=== PATIENT | female | born 1975 | race Caucasian/White ===

== ENCOUNTER 2023-08-28 08:36 | Day surgery (SDC) | payer SELFPAY ==
[2023-08-28] VITALS (13 sets, daily range): BP systolic 92–131; BP diastolic 57–80; PULSE 85–115; RESP 16–26; TEMP 36.8–37.1; O2SAT 93–99; BMI 24.0
[2023-08-28 09:06] LABS: Basophils # 0.1 10^3/uL (0.0-0.1); Basophils % 0.9 %; Eosinophils # 0.1 10^3/uL (0.0-0.8); Eosinophils % 1.4 %; Hematocrit 38.3 % (36-47); Lymphocytes # 1.1 10^3/uL (0.8-4.8); Lymphocytes % 12.5 %; Mean Corpuscular HGB Conc 34.5 g/dL (30-55); Mean Corpuscular Hemoglobin 32.8 pg (27-33); Mean Platelet Volume 8.4 fL (7.4-10.4); Monocytes # 0.2 10^3/uL (0.2-0.9); Monocytes % 2.1 %; Neutrophils # 7.53 10^3/uL (1.8-7.7); Neutrophils % 82.8 %; Nucleated Red Blood Cells % 0 %; Platelet Count 298 10^3/cmm (157-399); Red Blood Count 4.03 10^6/uL (3.85-5.65); Red Cell Distribution Width 13.2 % (12.1-15.1)
[2023-08-28 09:23] LABS: Alanine Aminotransferase 22 U/L (0-33); Albumin Level 4.4 g/dL (3.5-5.2); Alkaline Phosphatase 64 U/L (35-105); Anion Gap 16.1 (5-19); Aspartate Amino Transferase 36 U/L (0-32); Blood Urea Nitrogen 14 mg/dL (6-20); Calcium 9.5 mg/dL (8.5-10.5); Carbon Dioxide 26 mmol/L (22-29); Chloride 100 mmol/L (98-107); Globulin 2.5 g/dL (1.3-4.6); Glomerular Filtration Rate 75.9 mL/min (90-130); Glucose 95 mg/dL (65-115); Osmolality Calculated 286 mOsm/kg (285-295); Potassium 4.1 mmol/L (3.5-5.1); Sodium 138 mmol/L (136-145); Total Bilirubin 0.5 mg/dL (0.15-1.2); Total Protein 6.9 g/dL (6.6-8.7)
--- NOTE | 2023-08-28 10:00 | ED_ITS ---
HPI - Female Genitourinary 2 General: Chief complaint: Vaginal Bleeding Stated complaint: Vag bleeding Time Seen by Provider: 08/28/23 08:39 Source: patient Mode of arrival: ambulatory History of Present Illness: 48-year-old female presents to the emerg ency room complaining of vaginal bleeding after aggressive intercourse this morning. Patient is trembling and nauseous she denies any abdominal pain. She does state that the sex was consensual and she denies any abuse or assault. At this point in the history taking I asked Luh Chappell our charge nurse to come to the room with me to grader tender. Patient denies any vaginal instrumentation she denies any rectal intercourse she is states that she had several blood clots and had to use 3 washcloths to clean up the blood after she noted it. She denies any dysuria urgency or frequency no recent constipation or abdominal pain no pelvic pain at this time. She has previously had a but no other pelvic surgeries. Patient is trembling states she is very cold and somewhat anxious given the circumstances. MD elicited complaint: vaginal bleeding Onset (ago): minute(s) Location of symptoms: external genitalia Severity: mild Quality of pain: cramping Consistency: constant Vaginal discharge: none Vaginal bleeding: heavy Exacerbating factors: none Relieving factors: none Associated symptoms: Reports nausea and syncope; Deny abdominal pain, short of breath, fevers/chills, headache(s), rash, seizures, vaginal bleeding, vaginal discharge or weakness Sexual activity: Yes Review of Systems 2 Const: Denies: fever(s) or chills Card: Reports: syncope Resp: Denies: dyspnea GI: Reports: nausea; Denies: abdominal pain : Denies: vaginal discharge Musc: Denies: neck pain or back pain Skin/Breast: Denies: rash Neuro: Denies: headache(s) Physical Exam 2 Const: GENERAL APPEARANCE: cooperative and comfortable O RIENTATION/CONSCIOUSNESS: Yes awake, Yes oriented to person, Yes oriented to place and Yes oriented to time HENMT: COMMON NORMALS: normocephalic, atraumatic and hearing grossly normal bilaterally HEAD & SCALP: normocephalic and atraumatic Resp: COMMON NORMALS: normal respiratory effort, No retractions, No use of accessory muscles and clear to auscultation bilaterally AUSCULTATION: clear to auscultation bilaterally Cardio: COMMON NORMALS: regular rate, regular rhythm and No murmurs present (Cardio) RATE: regular rate RHYTHM: regular rhythm GI: COMMON NORMALS: Soft to palpation and No hepatosplenomegaly present A USCULTATION: Yes normoactive bowel sounds PALPATION: Yes Soft to palpation, No Tenderness to palpation present (GI), No Guarding due to palpation present (GI) and Yes No hepatosplenomegaly present : SPECULUM EXAM - VAGINA: No vaginal bleeding OB/EXTERNAL & SPECULUM: No vaginal bleeding OTHER: Pelvic exam patient placed in dorsolithotomy position nurse present to grader tender. Speculum introduced some clots noted in the vaginal vault these were cleaned out with swabs. On the left lateral vaginal wall there is approximately a 3 inch laceration with active arterial bleeding. Limited exam because of equipment available I was not able to visualize any other lacerations Extremity: COMMON NORMALS: normal to inspection, capillary refill normal, no clubbing, cyanosis or edema, no calf tenderness and no pedal edema Neuro: SENSORIUM/ORIENTATION: Yes oriented to person, Yes oriented to place and Yes oriented to time Skin: COMMON NORMALS: no rashes or lesions noted GENERAL SKIN EXAM: no rashes or lesions noted Course 2 Vital Signs: Vital signs: Vital Signs Temperature 98.5 F 08/28/23 15:16 Pulse Rate 99 08/28/23 15:39 Respiratory Rate 18 08/28/23 15:39 Blood Pressure 102/73 08/28/23 15:39 Pulse Oximetry 94 08/28/23 15:39 Oxygen Delivery Me thod Room Air 08/28/23 15:39 MDM - Female Medical Decision Making Vaginal laceration with active bleeding. No believe will be able to adequately control this in the emergency room patient had severe discomfort with exam she will need a more thorough exam to evaluate for other injury. Discussed with hospitalist will place on observation to outpatient surgery where they will repair under anesthesia. Discussed with patient. Medical Records I reviewed the patient's medical records. Lab Data I reviewed the patient's lab results. 08/28/23 08:50 08/28/23 08:50 Laboratory Results WBC 9.10 10^3/uL (3.29-11.43) 08/28/23 08:50 RBC 4.03 10^6/uL (3.85-5.65) 08/28/23 08:50 Hgb 13.20 g/dL (11.27-16.99) 08/28/23 08:50 Hct 38.3 % (36-47) 08/28/23 08:50 MCV 95.0 fl (85-98) 08/28/23 08:50 MCH 32.8 pg (27-33) 08/28/23 08:50 MCHC 34.5 g/dL (30-55) 08/28/23 08:50 RDW 13.2 % (12.1-15.1) 08/28/23 08:50 Plt Count 298 10^3/cmm (157-399) 08/28/23 08:50 MPV 8.4 fL (7.4-10.4) 08/28/23 08:50 Neut % (Auto) 82.8 % 08/28/23 08:50 Lymph % (Auto) 12.5 % 08/28/23 08:50 Elbert % (Auto) 2.1 % 08/28/23 08:50 Eos % (Auto) 1.4 % 08/28/23 08:50 Baso % (Auto) 0.9 % 08/28/23 08:50 Neut # (Auto) 7.53 10^3/uL (1.8-7.7) 08/28/23 08:50 Lymph # (Auto) 1.1 10^3/uL (0.8-4.8) 08/28/23 08:50 Elbert # (Auto) 0.2 10^3/uL (0.2-0.9) 08/28/23 08:50 Eos # (Auto) 0.1 10^3/uL (0.0-0.8) 08/28/23 08:50 Baso # (Auto) 0.1 10^3/uL (0.0-0.1) 08/28/23 08:50 Nucleated RBC % (auto) 0 % 08/28/23 08:50 Nucleated RBCs # 0.0 /100WBC 08/28/23 08:50 Sodium 138 mmol/L (136-145) 08/28/23 08:50 Potassium 4.1 mmol/L (3.5-5.1) 08/28/23 08:50 Chloride 100 mmol/L (98-107) 08/28/23 08:50 Carbon Dioxide 26 mmol/L (22-29) 08/28/23 08:50 Anion Gap 16.1 (5-19) 08/28/23 08:50 BUN 14 mg/dL (6-20) 08/28/23 08:50 Creatinine 0.8 mg/dL (0.5-0.9) 08/28/23 08:50 GFR Calculation 75.9 mL/min (90-130) L 08/28/23 08:50 Glucose 95 mg/dL (65-115) 08/28/23 08:50 Calculated Osmolality 286 mOsm/kg (285-295) 08/28/23 08:50 Calcium 9.5 mg/dL (8.5-10.5) 08/28/23 08:50 Total Bilirubin 0.5 mg/dL (0.15-1.2) 08/28/23 08:50 AST 36 U/L (0-32) H 08/28/23 08:50 ALT 22 U/L (0-33) 08/28/23 08:50 Alkaline Phosphatase 64 U/L (35-105) 08/28/23 08:50 Total Protein 6.9 g/dL (6.6-8.7) 08/28/23 08:50 Albumin 4.4 g/dL (3.5-5.2) 08/28/23 08:50 Globulin 2.5 g/dL (1.3-4.6) 08/28/23 08:50 Urine Color Yellow (Yellow) 08/28/23 11:05 Urine Appearance Clear (CLEAR) 08/28/23 11:05 Urine pH 5 (5-7) 08/28/23 11:05 Ur Specific [place] 1.025 (1.005-1.030) 08/28/23 11:05 Urine Protein Neg (Negative) 08/28/23 11:05 Urine Glucose (UA) Norm (Normal) 08/28/23 11:05 Urine Ketones Negative (Negative) 08/28/23 11:05 Urine Blood 2+ (Negative) H 08/28/23 11:05 Urine Nitrate Negative (Negative) 08/28/23 11:05 Urine Bilirubin Neg (Negative) 08/28/23 11:05 Urine Urobilinogen Norm mg/dL (Negative) 08/28/23 11:05 Ur Leukocyte Esterase Negative (Negative) 08/28/23 11:05 Urine RBC 0-4 /hpf (0-2) H 08/28/23 11:05 Urine WBC 0-4 /hpf (0-5) H 08/28/23 11:05 Ur Squamous Epith Cells None /hpf (0-5) 08/28/23 11:05 Amorphous Sediment Not Reportable 08/28/23 11:05 Urine Bacteria Trace /hpf (NONE) 08/28/23 11:05 Hyaline Casts 0-4 /lpf H 08/28/23 11:05 Urine Mucus 2+ /hpf 08/28/23 11:05 No radiology studies performed this visit Discharge Plan Discharge Patient Disposition: Placed in Observation Clinical Impression: Vaginal laceration Discharge Diet: Regular Discharge Activity: Increase activity as tolerated and Limit activity as instructed Coding Level of Care Code ED Radio Equipment Installer for Basia Kelly
[2023-08-28] MEDS: LORazepam 2 mg/mL INJ 10 mL MDV IM (10:54)
[2023-08-28 11:22] LABS: Add Urine Microscopic? YES; Bilirubin Urine Neg (Negative); Blood Urine 2+ (Negative); Glucose Urine UA Norm (Normal); Ketones Urine Negative (Negative); Leukocyte Esterase Urine Negative (Negative); Nitrate Urine Negative (Negative); Protein Urine Neg (Negative); Specific Gravity, Urine 1.025 (1.005-1.030); Urine Appearance Clear (CLEAR); Urine Color Yellow (Yellow); Urobilinogen Urine Norm (Negative); pH Urine 5 (5-7)
[2023-08-28 11:32] LABS: Add Urine Culture? No; Bacteria Urine TRACE /hpf; Hyaline Casts Urine 0-4 /lpf; Mucus Urine 2+ /hpf; RBC Urine 0-4 /hpf (0-2); WBC Urine 0-4 /hpf (0-5)
--- NOTE | 2023-08-28 12:30 | PC.NURSE ---
Pelvic exam completed by Dr Aldridge with SERENITY Roberts assisting
--- NOTE | 2023-08-28 13:45 | PC.NURSE ---
No hcg per Dr Patel, no menstral cycle > 1 yr
[2023-08-28] MEDS: sodium chloride 0.9% 1,000 ML 30 ML IV (13:55)
[2023-08-28] MEDS: cefTRIAXone 1,000 MG in sodium chloride 0.9% (plus) 50 ML 100 MG IV (13:59)
--- NOTE | 2023-08-28 14:14 | P.ANESASSM_ITS ---
Pre-Anesthetic Assessment Height/Weight: Height 1.63 m Weight 63.503 kg Temp Pulse Resp BP Pulse Ox O2 Del Method 98.7 F 106 H 16 115/76 95 Room Air 08/28/23 13:53 08/28/23 13:53 08/28/23 13:53 08/28/23 13:53 08/28/23 13:53 08/28/23 13:53 Operation Date: 08/28/23 14:00 Proposed Procedures p Vaginal Laceration Repair(Not Applicable) - Mirtha Mac, Familial anesthetic complications: none Was Beta Mary taken within 24 hours: N/A Was Clonidine taken within 24 hours: N/A Last intake: Intake Last Liquid Date 08/27/23 Last Liquid Time 23:30 Last Solid Date 08/27/23 Last Solid Time 19:00 Social No alcohol and No tobacco Exam alert, oriented x 3, clear to auscultation bilaterally and regular rate & rhythm Airway Submandibular: within normal limits Cervical ROM: within normal limits Mallampati: Class II Dentition: full Neuropsych Anxiety Anesthetic Plan ASA status: 2 Anesthesia: General Medications/Allergies Home Medications Medication Instructions Recorded Confirmed Last Taken Type alprazolam 1 mg tablet 1 mg PO DAILY PRN Anxiety 08/28/23 08/28/23 08/27/23 History citalopram 40 mg tablet 40 mg PO DAILY 08/28/23 08/28/23 08/27/23 History Allergies Allergy/AdvReac Type Severity Reaction Status Date / Time No Known Allergies Allergy Verified 08/28/23 09:00 Current Medications Generic Name Dose Route Start Last Admin Trade Name Freq PRN Reason Stop Dose Admin Sodium Chloride 1,000 mls @ 30 mls/hr 08/28/23 14:00 08/28/23 13:55 Sodium Chloride 0.9% IV 08/29/23 13:59 30 mls/hr .Q24H JANIYA Administration Data Anesthesia 08/28/23 08:50 08/28/23 08:50 Short CBC 08/28/23 Range/Units 08:50 WBC 9.10 (3.29-11.43) 10^3/uL Hgb 13.20 (11.27-16.99) g/dL Hct 38.3 (36-47) % MCV 95.0 (85-98) fl Plt Count 298 (157-399) 10^3/cmm Neut % (Auto) 82.8 % Neut # (Auto) 7.53 (1.8-7.7) 10^3/uL BMP 08/28/23 08:50 Sodium 138 Potassium 4.1 Chloride 100 Carbon Dioxide 26 BUN 14 Creatinine 0.8 Glucose 95 Calcium 9.5 Liver Function 08/28/23 Range/Units 08:50 Total Bilirubin 0.5 (0.15-1.2) mg/dL AST 36 H (0-32) U/L ALT 22 (0-33) U/L Alkaline Phosphatase 64 (35-105) U/L Albumin 4.4 (3.5-5.2) g/dL Urine 08/28/23 Range/Units 11:05 Urine Color Yellow (Yellow) Urine Appearance Clear (CLEAR) Urine pH 5 (5-7) Ur Specific [place] 1.025 (1.005-1.030) Urine Protein Neg (Negative) Urine Glucose (UA) Norm (Normal) Urine Ketones Negative (Negative) Urine Nitrate Negative (Negative) Urine Bilirubin Neg (Negative) Ur Leukocyte Esterase Negative (Negative) Urine RBC 0-4 H (0-2) /hpf Urine WBC 0-4 H (0-5) /hpf Cardiac Studies: 2 No Data to Display
--- NOTE | 2023-08-28 14:58 | PM.HP ---
Providers/Chief Complaint Primary Care Provider: Renata Aguilar APN Chief Complaint: Vag bleeding History of Present Illness Janny Jon is a 48 year old Menopausal female seen in ER after call from ER Physician for consultation and surgical management of pt with vaginal wall laceration after having sexual intercourse. Pt states sex was consenual, and denies instrumentation. Pt denies pain, but has nausea and anxiety. She explains she doesn't want family to know why she is bleeding. LMP- greater than 1 yr ago. Risk and benefits of surgical exploration for Repair of active vaginal bleeding from laceration reviewed with possible injury to vessel and nerves as well as possible infection. Pt understands. Review of Systems Const: Denies: fever(s) or chills Card: Reports: syncope Resp: Denies: dyspnea GI: Reports: nausea; Denies: abdominal pain : Denies: vaginal discharge Musc: Denies: neck pain or back pain Skin/Breast: Denies: rash Neuro: Denies: headache(s) Medications/Allergies Home Medications Medication Instructions Recorded Confirmed Last Taken Type alprazolam 1 mg tablet 1 mg PO DAILY PRN Anxiety 08/28/23 08/28/23 08/27/23 History citalopram 40 mg tablet 40 mg PO DAILY 08/28/23 08/28/23 08/27/23 History Allergies Allergy/AdvReac Type Severity Reaction Status Date / Time No Known Allergies Allergy Verified 08/28/23 09:00 Vitals/I&O/Wt Last Vital Signs Temp 98.6 F 08/28/23 14:46 Pulse 114 H 08/28/23 14:51 Resp 17 08/28/23 14:51 BP 92/57 08/28/23 14:51 Pulse Ox 94 08/28/23 14:51 O2 Del Method Room Air 08/28/23 14:51 08/27/23 08/28/23 08/28/23 22:59 06:59 14:59 Intake Total 50 / 50 Output Total 10 / 10 Balance 40 / 40 Weight last 48 hrs Weight 63.503 kg Physical Exam Narrative: 48yo female A&O x 3 in NAD. HENMT: COMMON NORMALS: normocephalic Cardio: COMMON NORMALS: regular rate and regular rhythm Back/Pelvis: OTHER: PE- right sided vaginal wall lacertion 3cm with 1.5 cm area abrasion with active bleeding. Extremity: COMMON NORMALS: normal to inspection, no clubbing, cyanosis or edema and no calf tenderness Data 08/28/23 08:50 08/28/23 08:50 A&P Assessment and plan (1) Vaginal laceration: Plan Emergent Surgical Repair. IV Rocephin Attestations Medical Necessity Statement*: Surgical exploration and Repair of Vaginal laceration. Will discharge aftr recovery. Coding Level of Care Code Acute Code for [facility] Diagnoses Vaginal laceration S31.41XA
--- NOTE | 2023-08-28 15:17 | PM.OP ---
Operative Report Date of procedure: August 28, 2023 Pre-op diagnosis: Vaginal Wall Laceration with Active bleeding Post-op diagnosis: same Procedure done: Pt taken to surgical suite after ER consultation for Exploration and Repair of Vaginal Wall Laceration resulting from Sexual [place]. General Anesthesia given and pt positioned in dorsal lithotomy position. Vagina prepped with betadine and sterile speculum placed in vagina to see laceration. Active bleeder noted at top of 3cm lacertion on right vaginal wall under cervix. 3.0 vicryl suture used to repair and ligate bleeding laceration, with hemostasis and good approximation. All other vaginal mucosa without bleeding or lacerations. Vaginal vault cleansed and pt repositioned before awakening. Pt in stable and satisfaction condition. Specimens removed/disposition: none Surgeon: Mirtha Mac DO Anesthesia: General Estimated blood loss: 150ml Complications: none Condition: stable Disposition: other Brief History: 48yo female seen in ER with bleeding Vaginal laceration from sexual intercourse. Procedure: as above for procedure done
--- NOTE | 2023-08-28 17:07 | ANE.PACU2 ---
Inpatient post-anesthesia follow up: Airway intact: Yes Vital signs: Temperature 98.5 F Pulse Rate 99 Respiratory Rate 18 Blood Pressure 102/73 Pulse Oximetry 94 Oxygen Delivery Me thod Room Air Oxygen Flow Rate Fraction of Inspir ed Oxygen Hydration adequate: Yes Nausea and vomiting: No Pain level: 2 Mental status: Baseline
== END 2023-08-28 15:52 | disposition home or self-care (01) ==
LOC: ER 10:03 → OR 13:25
PROVIDERS: Emergency Provider Family Medicine; PCP Nurse Practitioner Family; Visit Provider Obstetrics & Gynecology
PROC: 0UQG0ZZ Repair Vagina, Open Approach (ICD-10-PCS; CPT 57200; principal; 2023-08-28 14:00)
DX: S31.41XA Laceration without foreign body of vagina and vulva, initial encounter (principal); X58.XXXA Exposure to other specified factors, initial encounter
CPT/HCPCS: 57200; 36415; 80053; 81001; 85025; 96372; E0352; J0696; J1100; J2060; J2405; J2704; J3010; J3490; J7030

== ENCOUNTER 2023-09-30 12:26 | Emergency (ER) | payer OTHER, SELFPAY ==
[2023-09-30 13:02] VITALS: BP 149/103; PULSE 59; RESP 12; TEMP 36.8; O2SAT 99; BMI 24.5
[2023-09-30 14:25] LABS: Hepatitis B Surface AB 3.7 (11.5-1000); Hepatitis B Surface Antigen Non-Reactive (Nonreactive); Hepatitis C Virus Antibody Non-Reactive (Nonreactive)
[2023-09-30 14:35] LABS: HIV 1 & 2 Antibody Non-Reactive (Non-Reactiv); HIV 1 & 2 Antigen Non-Reactive (Non-Reactiv)
--- NOTE | 2023-09-30 15:48 | W.ED.GENADLT ---
HPI - General Adult General: Chief complaint: Needlestick/Injury/Exposure Stated complaint: needlestick Time Seen by Provider: 09/30/23 15:33 Source: patient Mode of arrival: ambulatory Limitations: no limitations History of Present Illness: Patient is a nice 48-year-old female presents to ED today following a needlestick injury that occurred while at work. 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 Patient states she copiously irrigated puncture wound and cleaned with alcohol. Patient states she believes source patient is being tested for hepatitis/HIV per protocol. No history of hepatitis/HIV in patient's chart. Employee patient today states her tetanus is UTD. She reports receiving full hepatitis series. Onset (ago): hour(s) Location: right and upper extremity Relieving factors: none Exacerbating factors: none Associated symptoms: Reports no associated symptoms Treatments prior to arrival: other (copious cleaning/irrigation) Review of Systems Musc: Denies: extremity pain Skin/Breast: Denies: erythema Neuro: Denies: numbness in extremities or sensory changes Physical Exam Const: COMMON NORMALS: no acute distress, no limitations, healthy appearing and well nourished Extremity: COMMON NORMALS: normal to inspection NARRATIVE EXTREMITY EXAM: normal exam; no punture wounds noted GENERAL: Yes normal exam except as noted Course Vital Signs: Vital signs: Vital Signs Temperature 98.3 F 09/30/23 13:02 Pulse Rate 59 L 09/30/23 13:02 Respiratory Rate 12 09/30/23 13:02 Blood Pressure 149/103 09/30/23 13:02 Pulse Oximetry 99 09/30/23 13:02 Oxygen Delivery Me thod Room Air 09/30/23 13:02 MDM - General Adult Medical Decision Making Patient is UTD on tetanus. Reportedly the source patient is getting tested for hepatitis/HIV. Patient had employee exposure labs performed here. Her hep B surface antibody is low at 3.7. Guidelines do recommend hepatitis B immune globulin however patient declines. She would like to go home. Do recommend re-vaccination through Worker's Comp. Patient verbalizes understanding. She did not want PEP for HIV. Discussed incredibly low risk of transmission even IF source patient was positive. Medical Records I reviewed the patient's medical records. Lab Data Laboratory Results Hep Bs Antigen Non-reactive (Nonreactive) 09/30/23 13:31 Hep Bs Antibody 3.7 (11.5-1000) L 09/30/23 13:31 Hepatitis C Antibody Non-reactive (Nonreactive) 09/30/23 13:31 HIV 1&2 Ab & HIV 1 Ag Non-reactive (Non-Reactiv) 09/30/23 13:31 HIV 1&2 Antibody Non-reactive (Non-Reactiv) 09/30/23 13:31 No radiology studies performed this visit Discharge Plan Discharge Patient Disposition: Home Clinical Impression: Needlestick injury accident Condition: Stable Prescriptions: No Action citalopram 40 mg tablet 40 mg PO DAILY alprazolam 1 mg tablet 1 mg PO DAILY PRN (Reason: Anxiety) Discharge Orders: Discharge ED (Routine); Ordered 09/30/23 Ordered By: Ana Phipps Referrals: Renata Aguilar APN [Primary Care Provider] - Patient Instructions: Needle Stick Injuries (ED) Activity Restrictions/Additional Instructions: As we discussed you need to follow-up with Worker's Comp. as directed. You most likely will require repeat vaccination for Hepatitis B. Coding Level of Care Code ED Pharmaceutical Salesperson for Basia Kelly
[2023-09-30 16:02] VITALS: BP 149/103; PULSE 59; RESP 12; TEMP 36.8; O2SAT 99
== END 2023-09-30 16:02 | disposition home or self-care (01) ==
PROVIDERS: Emergency Provider Physician Assistant; PCP Nurse Practitioner Family
DX: S61.232A Puncture wound without foreign body of right middle finger without damage to nail, initial encounter (principal); W46.0XXA Contact with hypodermic needle, initial encounter; Y92.122 Bedroom in nursing home as the place of occurrence of the external cause; Y99.0 Civilian activity done for income or pay
CPT/HCPCS: 36415; 86706; 86803; 87340; 87806; 99283